=== PATIENT | male | born 1970 | race Caucasian/White ===

== ENCOUNTER 2018-10-08 07:32 | Emergency (ER) | payer OTHER ==
[~2018-10-08] VITALS: Ht 172.7 cm; Wt 74.8 kg
[2018-10-08] MEDS ORDERED: PREVACID30 MG (07:40)
== END 2018-10-08 18:26 | disposition home or self-care (01) ==
LOC: ER 07:32
DX: K52.9 Noninfective gastroenteritis and colitis, unspecified (principal)